=== PATIENT | female | born 1960 | race Caucasian/White ===

== ENCOUNTER → 2020-01-23 09:11 | Outpatient (BNVA) | payer OTHER, SELFPAY | PROVIDERS: Family Provider Registered Nurse; Visit Provider Registered Nurse | DX: R25.2 Cramp and spasm (principal); J44.9 Chronic obstructive pulmonary disease, unspecified; R60.9 Edema, unspecified | CPT/HCPCS: 80053; 83880; 85025 ==

== ENCOUNTER 2020-01-30 11:11 | Outpatient (CLI) | payer OTHER, SELFPAY ==
--- NOTE | 2020-01-30 11:27 | XRR_ITS ---
PROCEDURE INFORMATION: Exam: XR Chest, 2 Views Exam date and time: 01/30/2020 11:27 AM Age: 59 years old Clinical indication: Shortness of breath; Patient HX: Fluid retention, SOB, copd TECHNIQUE: Imaging protocol: XR of the chest Views: 2 views. COMPARISON: No relevant prior studies available. FINDINGS: Lungs: Unremarkable. No consolidation. Pleural space: Unremarkable. No pleural effusion. No pneumothorax. Heart/Mediastinum: Unremarkable. No cardiomegaly. Bones/joints: Unremarkable. XR/XR chest 2V* [id number] IMPRESSION: No acute findings.
== END 2020-01-30 11:12 | disposition home or self-care (01) ==
LOC: RAD 11:17
PROVIDERS: PCP Registered Nurse; Visit Provider Registered Nurse
DX: R06.02 Shortness of breath (principal); J44.9 Chronic obstructive pulmonary disease, unspecified
CPT/HCPCS: 71046

== ENCOUNTER → 2020-04-27 09:13 | Outpatient (BNVA) | payer BC, SELFPAY | PROVIDERS: PCP Registered Nurse; Visit Provider Registered Nurse | DX: N20.0 Calculus of kidney; R30.0 Dysuria; M54.9 Dorsalgia, unspecified | CPT/HCPCS: 81000 ==

== ENCOUNTER 2020-05-05 08:46 | Outpatient (CLI) | payer BC, SELFPAY ==
--- NOTE | 2020-05-05 09:15 | CT_ITS ---
WS: [id number] CT ABDOMEN PELVIS TECHNIQUE: Noncontrast CT of the abdomen and pelvis with coronal and sagittal reformatted images. CLINICAL INFORMATION: right flank pain, hematuria COMPARISON: None. DLP: 1138.[address] scans at [facility] use at least one of these dose optimization techniques: automat ed exposure control; mA and/or kV adjustment per patient size (includes targeted exams where dose is matched to clinical indication); or iterative reconstruction. FINDINGS: Hepatomegaly with diffuse fatty infiltration of the liver. Portal vein and splenic vein are patent. N ormal spleen. Normal GE junction. Lung bases are well aerated. Noncontrast pancreas is normal.Adrenal glands are normal. Noncontrast kidneys are normal. No obstructing renal or ureteral calculi. Pelvic phleboliths. Uterine calcifications. Normal caliber abdominal aorta. Aortic calcification. No free fluid in the abdomen or pelvis. No evidence of high-grade small or large bowel obstruction. CT/CT kidney stone [id number] IMPRESSION: 1. No hydronephrosis. No obstructing renal or ureteral calculi. 2. Pelvic phleboliths. Uterine calcifications. 3. Hepatomegaly with diffuse fatty infiltration of the liver. 4. No free fluid in the abdomen or pelvis. No other significant findings.
== END 2020-05-05 08:47 | disposition home or self-care (01) ==
LOC: RADWPI 08:49
PROVIDERS: PCP Registered Nurse; Visit Provider Registered Nurse
DX: R10.9 Unspecified abdominal pain (principal); R31.9 Hematuria, unspecified; I87.8 Other specified disorders of veins; N85.8 Other specified noninflammatory disorders of uterus; R16.0 Hepatomegaly, not elsewhere classified; K76.0 Fatty (change of) liver, not elsewhere classified
CPT/HCPCS: 74176

== ENCOUNTER → 2020-05-06 10:27 | Outpatient (BNVA) | payer BC, SELFPAY | PROVIDERS: PCP Registered Nurse; Visit Provider Registered Nurse | DX: R31.9 Hematuria, unspecified (principal); E78.5 Hyperlipidemia, unspecified; Z71.41 Alcohol abuse counseling and surveillance of alcoholic | CPT/HCPCS: 80053; 80061; 81000; 85025; 87086 ==

== ENCOUNTER → 2021-03-21 15:17 | Outpatient (BNVA) | payer BC, SELFPAY | PROVIDERS: PCP Registered Nurse; Visit Provider Nurse Practitioner Family | DX: Z01.812 Encounter for preprocedural laboratory examination (principal); Z20.822 Contact with and (suspected) exposure to COVID-19 | CPT/HCPCS: 87635 ==

== ENCOUNTER 2021-03-28 11:08 | Outpatient (CLI) | payer BC, SELFPAY ==
--- NOTE | 2021-03-28 12:33 | PFTS_ITS ---
Date of Study:03/28/21 Date of Dictation: MECHANICS: Forced vital capacity (FVC) is reduced. Forced expiratory volume in one second (FEV1) is reduced. FEV1/FVC is normal. FLOW VOLUME LOOP: There is scooping of the expiratory flow volume loop. LUNG VOLUMES: Total lung capacity (TLC) is increased. Residual volume (RV) is increased. DIFFUSING CAPACITY FOR CARBON MONOXIDE: Normal. INTERPRETATION: The pulmonary function tests are consistent with nonspecific ventilatory limitation. The postbronchodilator spirometry is consistent with mild restriction. There is no significant postbronchodilator response. The lung volumes are consistent with hyperinflation and air trapping. Gas exchange (DLCO) is normal. MTDD
== END 2021-03-28 11:09 | disposition home or self-care (01) ==
PROVIDERS: PCP Nurse Practitioner Family; Visit Provider Nurse Practitioner Family
DX: J44.9 Chronic obstructive pulmonary disease, unspecified (principal); J45.909 Unspecified asthma, uncomplicated
CPT/HCPCS: 94060; 94726; 94729; J7611

== ENCOUNTER → 2021-12-19 15:20 | Outpatient (BNVA) | payer BC, SELFPAY | PROVIDERS: PCP Nurse Practitioner Family; Visit Provider Family Medicine | DX: J41.0 Simple chronic bronchitis (principal); H93.19 Tinnitus, unspecified ear | CPT/HCPCS: 80053; 80061; 84439; 84443; 85025 ==

== ENCOUNTER → 2022-01-16 14:47 | Outpatient (BNVA) | payer BC, SELFPAY | PROVIDERS: PCP Family Medicine; Visit Provider Family Medicine | DX: R10.9 Unspecified abdominal pain (principal); N39.0 Urinary tract infection, site not specified; H93.13 Tinnitus, bilateral; H91.90 Unspecified hearing loss, unspecified ear | CPT/HCPCS: 81000 ==

== ENCOUNTER → 2022-07-13 08:38 | Outpatient (BNVA) | payer BC, SELFPAY | PROVIDERS: PCP Family Medicine; Visit Provider Emergency Medicine | DX: R19.7 Diarrhea, unspecified (principal); R63.1 Polydipsia | CPT/HCPCS: 80053; 83036; 85025 ==

== ENCOUNTER → 2025-06-09 13:51 | Outpatient (BNVA) | payer BC, SELFPAY | PROVIDERS: PCP Registered Nurse; Visit Provider Registered Nurse | DX: J06.9 Acute upper respiratory infection, unspecified (principal) | CPT/HCPCS: 87400; 87426 ==